=== PATIENT | male | born 2000 | race Caucasian/White ===

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

== ENCOUNTER 2023-10-03 10:16 | Emergency (ER) | payer SELFPAY ==
[~2023-10-03] VITALS: Ht 167.6 cm; Wt 88.5 kg
[~2023-10-03 10:16] MED LIST: KETOROLAC 15 MG/ML VIAL ONE; ONDANSETRON 4 MG ODT ONE
[2023-10-03 10:39] VITALS: BP 116/67; PULSE 62; RESP 18; TEMP 98.2; O2SAT 100
[2023-10-03] MEDS ORDERED: IBUP-1842 PO (13:09)
== END 2023-10-03 13:14 | disposition home or self-care (01) ==
LOC: MED 10:16
DX: R07.89 Other chest pain (principal); Z79.899 Other long term (current) drug therapy
CPT/HCPCS: 71045; 93005; 99283